=== PATIENT | female | born 1975 | race Caucasian/White ===

== ENCOUNTER 2018-10-07 02:10 | Emergency (ER) | payer MEDICAID ==
[~2018-10-07] VITALS: Ht 162.6 cm; Wt 59.1 kg
[~2018-10-07 02:10] MED LIST: AMPH10CA3 PO; ATEN-169 PO; ESOM40CA30 PO; LAMOTRIGINE PO; LISI-600 PO
[2018-10-07] MEDS ORDERED: ONDA4TAB6 PO (02:12)
[2018-10-07] MEDS ORDERED: LORazepam 2 mg/ml vial IV ONE (02:20)
[2018-10-07] MEDS ORDERED: ALPR-624 PO (02:30)
[2018-10-07 03:09] VITALS: BP 134/83
== END 2018-10-07 03:11 | disposition home or self-care (01) ==
LOC: ER 02:11
DX: F41.9 Anxiety disorder, unspecified (principal); R06.02 Shortness of breath; R07.2 Precordial pain; F32.9 Major depressive disorder, single episode, unspecified; I10 Essential (primary) hypertension; Z88.6 Allergy status to analgesic agent; Z98.890 Other specified postprocedural states; Z79.899 Other long term (current) drug therapy; Z56.0 Unemployment, unspecified
CPT/HCPCS: 93005; 96374; 99284; J2060

== ENCOUNTER 2018-10-12 17:44 | Emergency (ER) | payer MEDICAID ==
[~2018-10-12] VITALS: Ht 162.6 cm; Wt 67.0 kg
[~2018-10-12 17:44] MED LIST changes: +ALPR-624 PO; -AMPH10CA3 PO; -ESOM40CA30 PO; -LAMOTRIGINE PO; +ONDA4TAB6 PO
[2018-10-12 17:47] VITALS: BP 161/83
[2018-10-12] MEDS ORDERED: LORA-269 PO (19:59)
[2018-10-12] MEDS ORDERED: LORazepam 1 MG tablet PO ONE (20:00)
== END 2018-10-12 20:10 | disposition home or self-care (01) ==
LOC: ER 17:44
DX: F41.9 Anxiety disorder, unspecified (principal); F41.0 Panic disorder [episodic paroxysmal anxiety]; F32.9 Major depressive disorder, single episode, unspecified; I10 Essential (primary) hypertension; Z98.890 Other specified postprocedural states; Z88.6 Allergy status to analgesic agent; Z79.899 Other long term (current) drug therapy; Z56.0 Unemployment, unspecified
CPT/HCPCS: 93005; 99284

== ENCOUNTER 2019-01-02 02:45 | Emergency (ER) | payer MEDICAID ==
[~2019-01-02] VITALS: Ht 162.6 cm; Wt 59.1 kg
[~2019-01-02 02:45] MED LIST changes: +LORA-269 PO
[2019-01-02] MEDS ORDERED: ondansetron 4mg rapidly disintigrating tab PO ONE (04:15)
[2019-01-02] MEDS ORDERED: chlordiazePOXIDE 25mg capsule PO ONE (04:15)
[2019-01-02] MEDS ORDERED: LORA1TAB PO (04:16)
[2019-01-02] MEDS ORDERED: ONDA4TAB6 PO (04:16)
[2019-01-02 04:34] VITALS: BP 137/104
== END 2019-01-02 04:36 | disposition home or self-care (01) ==
LOC: ER 02:46
DX: F41.9 Anxiety disorder, unspecified (principal); R11.0 Nausea; I10 Essential (primary) hypertension; F32.9 Major depressive disorder, single episode, unspecified; Z98.890 Other specified postprocedural states; Z56.0 Unemployment, unspecified; Z88.6 Allergy status to analgesic agent; Z79.899 Other long term (current) drug therapy
CPT/HCPCS: 99284

== ENCOUNTER 2021-09-23 13:19 | Outpatient (CLI) | payer MEDICAID ==
[~2021-09-23 13:19] MED LIST changes: -LISI-600 PO; +LISI20TA28 PO
== END 2021-09-23 23:59 | disposition home or self-care (01) ==
LOC: RAD 13:19
PROVIDERS: ATTEND Internal Medicine Gastroenterology
DX: R13.14 Dysphagia, pharyngoesophageal phase (principal); K21.9 Gastro-esophageal reflux disease without esophagitis
CPT/HCPCS: 74230

== ENCOUNTER 2022-02-09 13:02 | Emergency (ER) | payer MEDICAID ==
[~2022-02-09] VITALS: Ht 165.1 cm; Wt 75.0 kg
[2022-02-09 13:33] LABS: BASOPHILS # (AUTO) 0.1 X10'3 (0-0.2); BASOPHILS % (AUTO) 0.7 % (0-1); EOSINOPHILS # (AUTO) 0.1 X10'3 (0-0.9); EOSINOPHILS % (AUTO) 1.4 % (0-6); HEMOGLOBIN 12.8 g/dl (12.0-16.0); LYMPHOCYTES # (AUTO) 1.9 X10'3 (1.1-4.8); LYMPHOCYTES % (AUTO) 21.7 % (21-51); MEAN CORPUSCULAR HEMOGLOBIN 32.4 PG (27.0-31.0); MEAN CORPUSCULAR HGB CONC 33.6 g/dL (33.0-36.5); MEAN CORPUSCULAR VOLUME 96.4 FL (78-98); MEAN PLATELET VOLUME 7.4 FL (7.4-10.4); MONOCYTES # (AUTO) 0.7 X10'3 (0-0.9); MONOCYTES % (AUTO) 8.2 % (2-12); PLATELET COUNT 256 X10'3 (140-440); RED BLOOD COUNT 3.94 X10'6 (4.20-5.60); RED CELL DISTRIBUTION WIDTH 15.5 % (11.5-14.5); WHITE BLOOD COUNT 8.9 X10'3 (4.5-11.0)
[2022-02-09 13:42] LABS: ALANINE AMINOTRANSFERASE 23 U/L (12-78); ALBUMIN 4.1 G/DL (3.4-5.0); ALKALINE PHOSPHATASE 83 IU/L (46-116); ANION GAP 11 (8-16); ASPARTATE AMINO TRANSFERASE 21 U/L (10-37); BILIRUBIN,TOTAL 0.5 MG/DL (0.1-1.0); BLOOD UREA NITROGEN 13 MG/DL (7-18); BUN/CREATININE RATIO 19.4 (6.6-38.0); CALCIUM 9.4 MG/DL (8.5-10.1); CHLORIDE 99 MMOL/L (99-107); CREATININE 0.67 MG/DL (0.40-0.90); GLUCOSE 110 MG/DL (70-104); LIPASE 167 U/L (73-393); POTASSIUM 4.2 MMOL/L (3.5-5.1); SODIUM 136 MMOL/L (135-145); TOTAL CARBON DIOXIDE 25.9 MMOL/L (24-32); TOTAL PROTEIN 8.1 G/DL (6.4-8.2); eGFR > 90 ML/MIN
[2022-02-09 13:50] LABS: CLARITY,URINE CLEAR (Clear); COLOR,URINE YELLOW (Yellow); GLUCOSE, URINE NEGATIVE (Neg); KETONES,URINE NEGATIVE (Neg); LEUKOCYTE ESTERASE ,URINE NEGATIVE (Neg); NITRITES, URINE NEGATIVE (Neg); OCCULT BLOOD,URINE NEGATIVE (Neg); PH,URINE 6.5 (4.8-8.0); PROTEIN,URINE NEGATIVE (Neg); UROBILINOGEN,URINE 0.2 E.U/dL (0.2-1.0)
[2022-02-09 13:53] LABS: UA COLLECTION TYPE CLN CATCH MIDSTREAM
[2022-02-09 16:02] VITALS: BP 122/82
[2022-02-09 16:10] LABS: URINE HCG NEGATIVE (NEG)
== END 2022-02-09 18:12 | disposition home or self-care (01) ==
LOC: ER 13:02
DX: R10.31 Right lower quadrant pain (principal); I10 Essential (primary) hypertension; F41.9 Anxiety disorder, unspecified; F32.A Depression, unspecified; Z98.890 Other specified postprocedural states; Z72.89 Other problems related to lifestyle; Z56.0 Unemployment, unspecified; Z88.6 Allergy status to analgesic agent; Z79.899 Other long term (current) drug therapy
CPT/HCPCS: 36415; 74176; 80053; 81003; 81025; 83690; 85025; 99284

== ENCOUNTER 2023-02-02 12:13 | Emergency (ER) | payer MEDICAID ==
[~2023-02-02] VITALS: Ht 162.6 cm; Wt 70.5 kg
[2023-02-02] MEDS ORDERED: normal saline 1000ML IV soln IVB ONE (13:55)
[2023-02-02] MEDS ORDERED: LORazepam 2 mg/ml vial IV ONE (13:55)
[2023-02-02] MEDS ORDERED: ondansetron/PF 4mg/2ml inj IV ONE (13:55)
[2023-02-02] MEDS ORDERED: famotidine/PF 10 mg/ml inj IV ONE (13:55)
[2023-02-02 14:14] LABS: BASOPHILS # (AUTO) 0.1 X10'3 (0-0.2); BASOPHILS % (AUTO) 0.4 % (0-1); EOSINOPHILS # (AUTO) 0.1 X10'3 (0-0.9); EOSINOPHILS % (AUTO) 0.3 % (0-6); HEMATOCRIT 41.6 % (35.0-45.0); HEMOGLOBIN 13.9 g/dl (12.0-16.0); LYMPHOCYTES # (AUTO) 2.1 X10'3 (1.1-4.8); MEAN CORPUSCULAR HGB CONC 33.4 g/dL (33.0-36.5); MEAN CORPUSCULAR VOLUME 95.7 FL (78-98); MEAN PLATELET VOLUME 7.7 FL (7.4-10.4); MONOCYTES # (AUTO) 0.9 X10'3 (0-0.9); MONOCYTES % (AUTO) 5.6 % (2-12); NEUTROPHILS # (AUTO) 13.1 X10'3 (1.8-7.7); NEUTROPHILS % (AUTO) 80.7 % (42-75); PLATELET COUNT 321 X10'3 (140-440); RED BLOOD COUNT 4.35 X10'6 (4.20-5.60); RED CELL DISTRIBUTION WIDTH 14.5 % (11.5-14.5); WHITE BLOOD COUNT 16.3 X10'3 (4.5-11.0)
[2023-02-02 14:27] LABS: ALANINE AMINOTRANSFERASE 26 U/L (12-78); ALBUMIN 4.2 G/DL (3.4-5.0); ALBUMIN/GLOBULIN RATIO 1.3 (1.1-1.5); ALKALINE PHOSPHATASE 65 IU/L (46-116); ANION GAP 10 (8-16); ASPARTATE AMINO TRANSFERASE 31 U/L (10-37); BLOOD UREA NITROGEN 13 MG/DL (7-18); BUN/CREATININE RATIO 18.6 (10.0-20.0); CALCIUM 9.2 MG/DL (8.5-10.1); CHLORIDE 94 MMOL/L (99-107); GLUCOSE 121 MG/DL (70-104); LIPASE 71 U/L (73-393); MAGNESIUM 1.3 MG/DL (1.5-2.4); POTASSIUM 3.6 MMOL/L (3.5-5.1); SODIUM 133 MMOL/L (135-145); TOTAL CARBON DIOXIDE 28.9 MMOL/L (24-32); TOTAL PROTEIN 7.5 G/DL (6.4-8.2); eGFR 90 ML/MIN
[2023-02-02 15:52] LABS: CLARITY,URINE CLEAR (Clear); COLOR,URINE YELLOW (Yellow); GLUCOSE, URINE NEGATIVE (Neg); KETONES,URINE NEGATIVE (Neg); LEUKOCYTE ESTERASE ,URINE NEGATIVE (Neg); NITRITES, URINE NEGATIVE (Neg); OCCULT BLOOD,URINE NEGATIVE (Neg); PH,URINE 6.5 (4.8-8.0); PROTEIN,URINE NEGATIVE (Neg); UROBILINOGEN,URINE 0.2 E.U/dL (0.2-1.0)
[2023-02-02 15:53] LABS: URINE HCG NEGATIVE (NEG)
[2023-02-02 15:56] LABS: UA COLLECTION TYPE CLN CATCH MIDSTREAM
[2023-02-02 16:32] VITALS: BP 128/73
== END 2023-02-02 16:35 | disposition home or self-care (01) ==
LOC: ER 12:14
DX: K22.4 Dyskinesia of esophagus (principal); J02.9 Acute pharyngitis, unspecified; I10 Essential (primary) hypertension; F41.9 Anxiety disorder, unspecified; F32.9 Major depressive disorder, single episode, unspecified; Z98.890 Other specified postprocedural states; Z56.0 Unemployment, unspecified; Z72.89 Other problems related to lifestyle; Z88.6 Allergy status to analgesic agent; Z79.899 Other long term (current) drug therapy
CPT/HCPCS: 36415; 80053; 81003; 81025; 83690; 83735; 84484; 85025; 87081; 87880; 96361; 96374; 96375; 99284; J2060; J2405; J3490; J7030

== ENCOUNTER 2023-09-18 15:29 | Emergency (ER) | payer MEDICAID ==
[~2023-09-18] VITALS: Ht 162.6 cm; Wt 63.0 kg
[2023-09-18 15:32] VITALS: TEMP 98
[2023-09-18 16:08] LABS: BASOPHILS # (AUTO) 0.1 X10'3 (0-0.2); BASOPHILS % (AUTO) 0.6 % (0-1); EOSINOPHILS # (AUTO) 0.2 X10'3 (0-0.9); EOSINOPHILS % (AUTO) 1.6 % (0-6); HEMATOCRIT 42.6 % (35.0-45.0); HEMOGLOBIN 14.4 g/dl (12.0-16.0); LYMPHOCYTES # (AUTO) 2.8 X10'3 (1.1-4.8); LYMPHOCYTES % (AUTO) 27.1 % (21-51); MEAN CORPUSCULAR HEMOGLOBIN 32.2 PG (27.0-31.0); MEAN CORPUSCULAR HGB CONC 33.7 g/dL (33.0-36.5); MEAN CORPUSCULAR VOLUME 95.3 FL (78-98); MEAN PLATELET VOLUME 7.6 FL (7.4-10.4); MONOCYTES # (AUTO) 0.6 X10'3 (0-0.9); MONOCYTES % (AUTO) 5.8 % (2-12); NEUTROPHILS # (AUTO) 6.8 X10'3 (1.8-7.7); NEUTROPHILS % (AUTO) 64.9 % (42-75); PLATELET COUNT 261 X10'3 (140-440); RED BLOOD COUNT 4.47 X10'6 (4.20-5.60); RED CELL DISTRIBUTION WIDTH 14.2 % (11.5-14.5); WHITE BLOOD COUNT 10.4 X10'3 (4.5-11.0)
[2023-09-18 16:17] LABS: ALANINE AMINOTRANSFERASE 27 U/L (12-78); ALBUMIN 4.5 G/DL (3.4-5.0); ALBUMIN/GLOBULIN RATIO 1.2 (1.1-1.5); ALKALINE PHOSPHATASE 75 IU/L (46-116); ANION GAP 10 (8-16); ASPARTATE AMINO TRANSFERASE 23 U/L (10-37); BILIRUBIN,TOTAL 0.6 MG/DL (0.1-1.0); BLOOD UREA NITROGEN 12 MG/DL (7-18); BUN/CREATININE RATIO 15.6 (10.0-20.0); CHLORIDE 98 MMOL/L (99-107); CREATININE 0.77 MG/DL (0.40-0.90); GLUCOSE 129 MG/DL (70-104); SODIUM 135 MMOL/L (135-145); TOTAL CARBON DIOXIDE 27.1 MMOL/L (24-32); TOTAL PROTEIN 8.2 G/DL (6.4-8.2); eCRCL 80 ML/MIN; eGFR 81 ML/MIN
[2023-09-18 16:24] LABS: LIPASE 23 U/L (16-77); PRO BRAIN NATRIURETIC PEPTIDE 46 PG/ML (0-125)
[2023-09-18] MEDS ORDERED: HYOS-13 PO (16:54)
[2023-09-18] MEDS ORDERED: hyoscyamine 0.125mg TAB.SUBL SL ONE (16:55)
[2023-09-18] MEDS ORDERED: famotidine 20mg tablet PO ONE (16:55)
[2023-09-18] MEDS ORDERED: LORazepam 1 MG tablet PO ONE (17:00)
[2023-09-18 17:57] VITALS: BP 120/83; PULSE 79; RESP 15; O2SAT 98
== END 2023-09-18 18:00 | disposition home or self-care (01) ==
LOC: ER 15:30
DX: K22.4 Dyskinesia of esophagus (principal); R07.9 Chest pain, unspecified
CPT/HCPCS: 36415; 80053; 83690; 83880; 84484; 85025; 93005; 99284